=== PATIENT | male | born 1985 | race Caucasian/White ===

== ENCOUNTER 2020-03-14 15:01 | Emergency (ER) | payer OTHER, SELFPAY ==
--- NOTE | 2020-03-14 15:05 | ED.WOUNDLAC ---
HPI - Wound/Laceration General Chief Complaint: Wound/Laceration Stated Complaint: lt hand thumb laceration Time Seen by Provider: 03/14/20 15:05 Source: RN notes reviewed Limitations: no limitations History of Present Illness HPI narrative: The patient, who is right-handed and immunizations UTD, presents with left thumb laceration. 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 He sustained a 2 inch, longitudinal laceration to his ulnar/palmar aspect, left thumb, that involves very small portion of the lateral thumbnail. Symptoms are mild with bleeding, better with elevation or compression. No numbness or weakness, and declines nailbed repair for the very small nail laceration. Related Data Allergies Allergy/AdvReac Type Severity Reaction Status Date / Time amoxicillin Allergy Unknown Skin Verified 07/14/17 21:20 Reaction Review of Systems Review of Systems: Narrative: The patient has been informed that they may have pre-hypertension or Hypertension based on a BP reading in the department. I recommend that the patient call the primary care provider listed on their discharge instructions or a physician of their choice this week to arrange follow up for further evaluation of possible pre-hypertension or Hypertension General/Constitutional: No weight loss,fever Eyes: N0: Redness,discharge Ears/Nose/Throat: No: Epistaxis,ear discharge Respiratory: Denies: Hemoptysis Gastrointestinal: No Vomiting, Bleeding-rectal Skin: No Lumps, eruption Neurologic: No Focal Weakness,Sz Hematologic: Denies: Petechiae/Purpura Psychiatric: No: Suicida ideationl All Other Systems: Reviewed and Negative PMFSH Social History Social History Smoking status: Current every day smoker Alcohol intake: never Comments At time of signature, agree with nursing past medical, surgical, social and family history. There is no relevant family history pertinent to the presenting complaint Exam Narrative: Exam Narrative: General Appearance: Well appearing, Well nourished, , Conjunctiva clear Ears: External ear normal, Auditory canal normal Nose: Normal nose, Nares clear Mouth/Throat: Normal appearing, Normal lips Supple Respiratory: Airway patent, No respiratory distress Musculoskeletal: Normal strength (mostly intact, limited flexion/extension by pain), Tenderness (ulnar, with mild decreased ROM), no Swelling , Other (no anterior drawer, no collateral laxity, Skin: Warm, Dry, Normal color, 5 cmeter longitudinal, superficial laceration of the ulnar/palmar aspect of the thumb ending at the lateral nail and tip Neurological: A&O x3, , Normal affect Course Vital Signs Vital signs: Vital Signs Temperature 98.4 F 03/14/20 15:10 Pulse Rate 90 03/14/20 15:10 Respiratory Rate 03/14/20 15:10 Blood Pressure 153/94 H 03/14/20 15:10 Pulse Oximetry 100 03/14/20 15:10 Temperature 98.4 F 03/14/20 15:10 Pulse Rate 90 03/14/20 15:10 Respiratory Rate 03/14/20 15:10 Blood Pressure 153/94 H 03/14/20 15:10 Pulse Oximetry 100 03/14/20 15:10 Procedures Laceration Laceration 1: Date: 03/14/20 Site: hand Side (If applicable): left Description: linear Depth: simple, single layer Local Anesthetic: other anesthetic (topical) Amount of anesthesia used (mL): 1 Pre-repair: irrigated extensively ====== Skin Level ====== Skin layer closed with: nylon Size (cm): 5-0 Technique: simple, interrupted ====== Subcutaneous Layer ====== ====== Muscle Layer ====== ====== Tendon Layer ====== Discharge Plan Discharge Clinical Impression: Laceration of thumb with damage to nail Qualifiers: Encounter type: initial encounter Foreign body presence: without foreign body Laterality: left Qualified Code(s): S61.112A - Laceration without foreign body of left thumb with damage to n
[2020-03-14 15:10] VITALS: BP 153/94; PULSE 90; RESP 20; TEMP 36.9; O2SAT 100
== END 2020-03-14 16:02 | disposition home or self-care (01) ==
PROVIDERS: Emergency Provider Emergency Medicine
DX: S61.112A Laceration without foreign body of left thumb with damage to nail, initial encounter (principal); W45.8XXA Other foreign body or object entering through skin, initial encounter; F17.200 Nicotine dependence, unspecified, uncomplicated
CPT/HCPCS: 12002; 99203; G0463

== ENCOUNTER 2023-01-23 03:36 | Day surgery (SDC) | payer OTHER, SELFPAY ==
[2023-01-18 13:33] VITALS: BMI 29.9
--- NOTE | 2023-01-18 13:41 | PC.NURSE ---
Report to the Outpatient Waiting Room, entrance under the green pavilion located off [facility], at time __0700 on date _01/23/23 . Planned Procedure Time: __0900 . Time changes happen often and if your time is changed the preop area will call you the afternoon before. - You and your visitor will be asked to self-screen and do not enter if you have any COVID symptoms. - A mask is optional within the hospital at this time. Patients may have clear liquids (water, carbonated beverages, clear teas, apple juice) until 3 hours prior to surgery with a maximum of 20 ounces. - No food from midnight until time of surgery - Take the following medications with a SIP of water the morning of surgery: ___NONE DO NOT STOP ANY OF YOUR OTHER PRESCRIPTION MEDICATIONS PRIOR TO SURGERY ?EXCEPT THE FOLLOWING Medications to discontinue per physician NONE Date to take last dose NONE Please no make-up, nail sinhala, hairspray, perfume, deodorant, or body powder the day of surgery. No jewelry (including any body piercings) or valuables the day of surgery, leave them at home. Please take a shower or bath the night before, or the morning of, surgery with an antibacterial soap. Wear comfortable, loose fitting clothing. - Jewelry must be removed prior to entering the operating room. Rings and piercings that are not removed may be cut off. - The hospital will not accept responsibility for valuables. - Please leave all valuables, including medications, at home the day of surgery. If you are going home after surgery, a licensed [employer] company driver must drive you home. - NO public transportation without another adult if you receive anesthesia. - We recommend that an adult stay with you for 24 hours following discharge. - We also recommend that you do not drive, make important decision, drink alcoholic beverages, or take any drugs that were not prescribed by your health care provider for at least 24 hours after your discharge time. Follow any additional instructions given to you from your surgeon. If you or anyone in your household have experienced Covid symptoms in the past week, please notify your surgeon or the nurse liaison at the phone number below for possible testing. Telephone instructions given to _TAMMI and asked if any additional questions and then verbalized understanding. Patient advised to call surgeon office or pre surgery nurse liaison [phone] if any additional questions.
[2023-01-23] VITALS (8 sets, daily range): BP systolic 124–168; BP diastolic 63–105; PULSE 63–86; RESP 14–16; TEMP 36.2–36.6; O2SAT 97–100
--- NOTE | 2023-01-23 07:04 | WPDANESEPPF ---
Anes - Initial Pre Proc Eval Procedure: Operation Date: 01/23/23 09:00 Proposed Procedures p Bilateral Turbinate Reduction, - Andre Sharpe MD s Septoplasty - Andre Sharpe MD Date/Time: 01/23/23 07:04 Surgeon: Andre Sharpe MD Pre Op Diagnosis: deviated septum, turbinate hypertrophy Patient Data Age: 37 Gender: M Height: 1.83 m Weight: 100 kg Allergies Allergy/AdvReac Type Severity Reaction Status Date / Time amoxicillin Allergy Intermediate Skin Verified 01/18/23 13:51 Reaction Home Medications Medication Instructions Recorded Confirmed Type loratadine 10 mg tablet (Claritin) 10 mg PO DAILY 01/18/23 01/18/23 History Patient hx anesthesia problems: none Family hx anesthesia problems: none Results Review: All pre-operative results and documents have been reviewed as part of the pre-operative evaluation. [facility] Surgical History Surgical History (Updated 01/23/23 @ 07:04 by Kamaljit Tripp MD) H/O elbow surgery Social History Social History Smoking status: Current every day smoker Tobacco type: smokeless tobacco Smokeless tobacco user: chewing tobacco Second hand tobacco smoke exposure: No Additional smoking assessment comments: OCCAS. CHEWING TOBACCO USE FOR 20 YRS Alcohol intake: current Substance use: never Substance use type: does not use Living arrangements: with family Spiritual care concerns: No Anes - Eval Final PreProcedure Day of Procedure 01/23/23 07:04 Patient weight: normal Heart: regular rate and rhythm Lungs: clear to auscultation Airway: Mallampati scale class II Neurological: alert and oriented Last oral intake: >/= 8 hours ASA classification: I Emergent: no Anesthetic plan: proceed Anesthesia type and monitoring: general ETT and standard monitoring Results Review: All pre-operative results and documents have been reviewed as part of the pre-operative evaluation. Informed Consent: The patient's anesthetic plan and its attendant risks and benefits were discussed with the patient/family/POA. Questions were solicited and answers provided to the satisfaction of the patient/family/POA.
[2023-01-23] MEDS: ACETAMINOPHEN 500 MG TABLET 1000 MG PO (07:26)
--- NOTE | 2023-01-23 07:34 | SUR.PREOP ---
dr shah notified of bp 168/105,to proceed with surgery.
[2023-01-23] MEDS: LACTATED RINGERS 1,000 ML 30 ML IV CONT ×2 (07:44→09:52)
[2023-01-23] MEDS: OXYMETAZOLINE HCL 0.05% NAS 15 ML BTL (*BKC) 1 SPRAY NASAL (08:27)
--- NOTE | 2023-01-23 08:27 | P.OP_ITS ---
Procedure Note - Detailed Date of Procedure 01/23/23 Pre-op Diagnosis deviated septum, turbinate hypertrophy Post-op Diagnosis Same Procedure Performed Septoplasty, bilateral inferior turbinoplasty Surgeon Andre Sharpe MD Anesthesia General Indications Nasal dyspnea Findings Significant right caudal and posterior septal deviation. Both cartilaginous and bony. Quintanilla splints placed Description of Procedure After obtaining informed consent and proper site verification the patient was brought to the operating room and placed on the operating table in the supine position. They were placed under general endotracheal anesthesia by the anesthesia provider. The patient was then draped in standard fashion for septoplasty and turbinoplasty. A timeout was performed and the correct patient and procedure were verified. The nasal cavity was injected with 1% lidocaine with 1-100,000 epinephrine and packed with afrin-soaked cottonoid pledgets. ? Attention was then directed to the nasal septum. A hemitransfixion incision was made in the left caudal septum and a mucoperichondrial flap was elevated in the usual fashion. The flap was elevated under endoscopic visualization and the remainder of the case was performed with endoscopic assistance. Using a D- knife, an incision was made through the cartilaginous septum with care to preserve the appropriate caudal and dorsal ?L-strut? of cartilage. The cartil age was then disarticulated from the bony-cartilaginous junction and the deviated cartilage was removed. Further deviated bone and cartilage was removed from the maxillary crest and posterior bony septum with care to avoid injury to the mucoperichondrial flap using a combination of dissection and Sanford- Mukherjee forceps. Once this was completed, the hemitransfixion incision was closed using simple interrupted 4-0 chromic suture. A quilting stitch to reapproximate the mucoperichondrial flaps was then placed using 4-0 plain gut suture on a Didier needle. ? Next attention was directed to the turbinates. Using a 0? telescope and 2mm turbinate blade microdebrider, a stab incision was made in the anterior face of the turbinate and dissection was carried posterior to perform submucosal resection. Next the turbinate was outfractured using a blunt instrument. A similar procedure was then performed on the right-hand side without difficulty. Quintanilla splints covered in mupirocin ointment were placed in the nasal cavity and secured to the membranous septum using a 3-0 Prolene suture. ?The patient was awakened from general anesthesia extubated in the operating room, and transported to the recovery room in stable condition without complication. Estimated Blood Loss 10 Drains No Packing Yes (quintanilla splints) Pathology None sent Complications No immediate complications Condition Stable Disposition PACU
--- NOTE | 2023-01-23 08:28 | P.HP_ITS ---
H&P: HPI History of Present Illness Date/Time: 01/23/23 08:28 Chief Complaint: Nasal dyspnea Review of Systems Review of Systems: All systems reviewed & are unremarkable except as noted in HPI and below [facility] Surgical History Surgical History (Updated 01/23/23 @ 07:04 by Kamaljit Tripp MD) H/O elbow surgery Social History Social History Smoking status: Current every day smoker Tobacco type: smokeless tobacco Smokeless tobacco user: chewing tobacco Second hand tobacco smoke exposure: No Additional smoking assessment comments: OCCAS. CHEWING TOBACCO USE FOR 20 YRS Alcohol intake: current Substance use: never Substance use type: does not use Living arrangements: with family Spiritual care concerns: No Meds Home Medications and Allergies Home Medications Medication Instructions Recorded Confirmed Type loratadine 10 mg tablet (Claritin) 10 mg PO DAILY 01/18/23 01/23/23 History Allergies Allergy/AdvReac Type Severity Reaction Status Date / Time amoxicillin Allergy Intermediate Hives Verified 01/23/23 07:27 Vital Signs Vital Signs - 24 hr 01/23/23 07:09 Temperature 36.6 C Pulse Rate 86 Respiratory Rate 16 Blood Pressure 168/105 H Pulse Oximetry 100 Oxygen Delivery Room Air Exam Narrative: Deviated nasal septum, turbinate hypertrophy, rest of exam wnl Assessment and Plan Assessment and plan (1) Deviated nasal septum: Code(s): J34.2 - Deviated nasal septum Status: Acute Plan Orestes is here for correction of nasal septal deviation and turbinate hypertrophy. r/b/a reviewed with patient who understands, agrees to proceed. Refer to outpt H&P for full details.
[2023-01-23] MEDS: ceFAZolin 2 GM/D5W 50 ML 2 GM/50 ML BAG IVPB (08:42)
[2023-01-23] MEDS: LIDOCAINE HCL 1% LOCAL INJ 20 ML VIAL 5 ML INFILTRATE (09:10)
[2023-01-23] MEDS: fentaNYL CITRATE INJ (*CRX) 100 MCG/2 ML VIAL 25 MCG IV PUSH (10:03)
--- NOTE | 2023-01-23 12:29 | SUR.PHASEII ---
1050 PATIENT DRESSED. READY FOR RIDE.
== END 2023-01-23 11:15 | disposition home or self-care (01) ==
PROVIDERS: Visit Provider Otolaryngology
PROC: (CPT 30140; principal; 2023-01-23 09:00)
PROC: (CPT 30520; 2023-01-23 09:00)
DX: J34.2 Deviated nasal septum (principal); J34.3 Hypertrophy of nasal turbinates; F17.220 Nicotine dependence, chewing tobacco, uncomplicated
CPT/HCPCS: 30140; 30520; A9270; J0330; J0690; J1100; J2250; J2405; J2704; J3010; J7120

== ENCOUNTER 2025-05-30 12:11 | Emergency (ER) | payer OTHER, SELFPAY ==
[2025-05-30 12:20] VITALS: BP 158/109; PULSE 113; RESP 18; TEMP 37.2; O2SAT 100
--- NOTE | 2025-05-30 12:21 | ED.WOUNDLAC ---
HPI - Wound/Laceration General Chief Complaint: Wound/Laceration Stated Complaint: R HAND INJURY Time Seen by Provider: 05/30/25 12:12 Source: patient Mode of arrival: ambulatory Limitations: no limitations History of Present Illness HPI narrative: Abilio is a 40-year-old male patient presenting to the clinic today with complaints of right hand injury-he reports he was deer hunting this morning and killed a matute. He was loading the Matute and the antler punctured his right hand in between the webbing of his right 5th finger. Patient reports that it punctured pretty deep. He had full range of motion of his hand. Developed swelling and increased pain to the right hand. Denies fevers, chills, or body aches. Related Data Home Medications ?Medication ?Instructions ?Recorded ?Confirmed ?Last Taken ?Type loratadine 10 mg tablet (Claritin) 10 mg PO DAILY 01/18/23 01/23/23 01/21/23 History Allergies Allergy/AdvReac Type Severity Reaction Status Date / Time amoxicillin Allergy Intermediate Hives Verified 01/23/23 07:27 Review of Systems Review of Systems: Pertinent positives per HPI. Patient denies any fever, chills, rash, headache, visual changes, dizziness, cough, runny nose, sore throat, shortness of breath, chest pain, palpitations, nausea, vomiting, diarrhea, constipation, abdominal pain, or any urinary issues. PMFSH Surgical History Surgical History H/O elbow surgery Social History Social History Smoking status: Current every day smoker Tobacco type: smokeless tobacco Smokeless tobacco user: chewing tobacco Second hand tobacco smoke exposure: No Additional smoking assessment comments: OCCAS. CHEWING TOBACCO USE FOR 20 YRS Alcohol intake: current Substance use: never Substance use type: does not use Living arrangements: with family Spiritual care concerns: No Comments At the time of my signature, I reviewed and agree with the nursing past medical, surgical, social, and family history. There is no relevant family history pertinent to the patient complaint. Exam Narrative: General: Well-developed, well nourished, in no apparent distress Head: Normocephalic, atraumatic. Cardio: Regular rate and rhythm, s1 and s2 normal, no murmur appreciated. Resp: Clear to auscultation bilaterally, no rhonchi, rales, wheezing or rubs. Integumentary: [place], warm, and dry, 1 cm puncture wound to the webbing of the right 5th finger with redness and swelling to the hand, no drainage, non tenderness, no visible FB. Course Course Emergency Course: Portions of this record may have been created with voice recognition software. Level of Care: Express Care Visit Vital Signs Vital signs: Vital Signs Temperature 37.2 C 05/30/25 12:20 Pulse Rate 113 H 05/30/25 12:20 Respiratory Rate 18 05/30/25 12:20 Blood Pressure 158/109 H 05/30/25 12:20 Pulse Oximetry 100 05/30/25 12:20 Oxygen Delivery Room Air 05/30/25 12:20 Temperature 37.2 C 05/30/25 12:20 Pulse Rate 113 H 05/30/25 12:20 Respiratory Rate 18 05/30/25 12:20 Blood Pressure 158/109 H 05/30/25 12:20 Pulse Oximetry 100 05/30/25 12:20 Oxygen Delivery Room Air 05/30/25 12:20 Vital signs reviewed MDM - Wound/Laceration MDM Narrative Medical decision making narrative: At the time of visit patient is resting comfortably on the exam table. Patient appears to be nontoxic. Complaints of right hand injury-he reports he was deer hunting this morning and killed a matute. He was loading the Mat[place] and the antler punctured his right hand in between the webbing of his right 5th finger. Patient reports that it punctured pretty deep. He had full range of motion of his hand. Developed swelling and increased pain to the right hand. Denies fevers, chills, or body aches. On exam patient has a 1 cm puncture wound to the webbing of the right 5th finger with swelling to the right hand. No drainage, non tenderness, no visible FB. Patient initially had full range of motion prior to swelling. Bleeding is controlled. Tetanus was ordered. Offered x-ray and patient declined. Discussed patient's case with Dr. Alvarez in the ED-patient has allergies to amoxicillin-hives and has never taken cephalosporins. Will place patient on Bactrim and metronidazole. Discussed if any signs and symptoms of infection worsen he needs to go the emergency room for further evaluation. Wound was cleansed using two bottles of NS solution and 1 bottle of antiseptic wound wash Plan: Patient has puncture wound to the right 5th finger webbing. Discussed patient's case with Dr. Alvarez in the ED-patient has allergies to amoxicillin-hives and has never taken cephalosporins. Will place patient on Bactrim and metronidazole. Discussed if any signs and symptoms of infection worsen he needs to go the emergency room for further evaluation. Supportive measures were discussed with the patient and they voiced understanding discharge instructions and agrees to treatment plan. Return precautions reviewed Differential Diagnosis Differential diagnosis: Likely laceration, abscess, abrasion and avulsion of skin Discharge Plan Discharge Clinical Impression: Infected puncture wound of hand Qualifiers: Encounter type: initial encounter Laterality: right Qualified Code(s): S61.431A - Puncture wound without foreign body of right hand, initial encounter Patient Disposition: Home Condition: Stable Instructions: Antibiotic Form, Puncture Wound (ED) Additional Instructions: Take Bactrim DS and metronidazole as prescribed Increase fluids and stay well hydrated May take Tylenol/ibuprofen as needed for pain or fever Rest, ice, and elevate Keep covered to allow for drainage Keep wound clean and dry Watch for signs and symptoms of infection- redness, streaking, swelling, purulent discharge, or increase in pain. Follow up with your PCP for wound check in 3 days Go to the emergency room-such as [facility] or [facility] for hand specialty if symptoms worsen-may need wound cleansed out and IV antibiotics. Patient Language: Maltese Prescriptions: New sulfamethoxazole-trimethoprim [Bactrim DS] 800-160 mg tablet 1 tablet PO Q12H 10 Days Qty: 20 0RF metronidazole 500 mg tablet 500 mg PO Q8H 10 Days Qty: 30 0RF No Action loratadine [Claritin] 10 mg Tablet 10 mg PO DAILY hydrocodone-acetaminophen 5-325 mg tablet 1 tablet PO Q4H PRN (Reason: pain) Qty: 20 0RF Follow-up/Referrals: PHYSICIAN,[employer] [Primary Care Provider, Internal Medicine] Time of Disposition: 12:35 Quality NIHSS Nursing Documentation ED NIHSS nursing documentation: reviewed/agree
[2025-05-30] MEDS: TETANUS,DIPHTHERIA,AC PERTUSSIS ADULT (0.5 ML) BOOSTRIX IM (13:00)
== END 2025-05-30 13:10 | disposition home or self-care (01) ==
PROVIDERS: Emergency Provider Nurse Practitioner Family
DX: S61.431A Puncture wound without foreign body of right hand, initial encounter (principal); L08.9 Local infection of the skin and subcutaneous tissue, unspecified; W55.39XA Other contact with other hoof stock, initial encounter; Z23 Encounter for immunization
CPT/HCPCS: 90471; 90715; 99213; G0463